=== PATIENT | male | born 1985 | race Hispanic/Latino ===

== ENCOUNTER 2021-11-09 08:15 | Emergency (ER) | payer SELFPAY ==
[~2021-11-09] VITALS: Ht 172.7 cm; Wt 108.0 kg
[2021-11-09] MEDS ORDERED: DEXAMETHASONE 4 MG TAB PO STA (08:40)
[2021-11-09] MEDS ORDERED: NAPROXEN250 MG PO (09:24)
== END 2021-11-09 10:35 | disposition home or self-care (01) ==
LOC: ER 08:21
DX: R42 Dizziness and giddiness (principal); J02.9 Acute pharyngitis, unspecified; F17.210 Nicotine dependence, cigarettes, uncomplicated
CPT/HCPCS: 83518; 87070; 93005; 99283; J8540